=== PATIENT | male | born 1940 | race Caucasian/White ===

== ENCOUNTER 2016-08-15 09:19 | Inpatient (IN) | payer MEDICARE, OTHER ==
[~2016-08-15] VITALS: Ht 188 cm; Wt 145.8 kg
--- NOTE | ~2016-08-15 | DS ---
ADMIT: 08/15/2016 RM/LOC: 423 [facility] MR#: [id number] 26[address] [facility] [address] [place], [place] [id number] NIKOLAI MCKOY [address] [place] [address] Discharge Summary SEX: M AGE: 75 : 1940 ADMISSION DATE: 08/15/2016 DISCHARGE DATE: 08/16/2016 FINAL DIAGNOSES: 1. Chest pain. 2. Atrial fibrillation with RVR (rapid ventricular response). 3. Shortness of breath. 4. Nausea/vomiting/gastroenteritis. 5. Acute on chronic heart failure with preserved ejection fraction. 6. Coronary artery disease. 7. Mildly elevated troponin maxed at 0.48. 8. Hypokalemia. REASON FOR ADMISSION: This is a 75-year-old gentleman who presented with palpitations, shortness of breath, nausea, vomiting, and chest pain. See history and physical for further details. HOSPITAL COURSE: The patient was admitted, placed back on his regular home medicines. Initial heart rate converted from atrial fibrillation with RVR to normal sinus rhythm with IV diltiazem. After that, he felt much better. He had some residual shortness of breath initially in the evening, but this resolved by the next day. He was feeling very well by the next day, was tolerating clear liquids fine, and wished to go home and eat normal food. Therefore, he was set up to go home. We had a long discussion taking over 30 minutes to go over his discharge plan as well as follow-up plans with his heart doctor given his mildly elevated troponin. We discussed that most likely this is related to the stress of his atrial fibrillation with RVR given his rates got up into the 180s at times. We discussed this new addition of diltiazem 120 mg in the morning on top of his 240 mg at night. This will be sent to [facility]. He should be on a low-salt diet. I will hold his Lasix for a couple of days until he is eating more normally. He should have daily weights to follow this as well. He does wish to follow up with me as well as the [facility] and Dr. Nice with Cardiology, so we will make arrangements for this. Handy Adair MD/ korey JOB #: [id number] CC: Handy Adair MD, Attending Physician Mickie Ford NP, Family Physician
[~2016-08-15 09:19] MED LIST: ACCUNEB DP0.63 MG/3 IH; ASA CHILDREN'S81 MG PO; BETAPACE DPS120 MG PO; CLINDAMYCIN HC300 MG PO; DENTA 5000 PLUS51 GM TP; DILTIAZEM 24HR240 MG PO; FUROSEMIDE40 MG PO; KEPPRA250 MG PO; KLOR-CON M2020 MEQ PO; LIPITOR DPS20 MG PO; PANTOPRAZOLE SO40 MG PO; PROAIR RESPICL90 MCG IH; SPIRIVA18 MCG; SYMBICORT160 MCG/6 IH; SYNTHROID DPS0.2 MG PO; TYLENOL325 MG PO; ULTRAM DPS50 MG PO; VITAMIN D1000 UNI1 PO; XARELTO20 MG PO; ZYRTEC DPS10 MG PO
--- NOTE | 2016-08-17 13:16 | ER ---
ADMIT: 08/15/2016 RM/LOC: 423 [facility] MR#: [id number] [address] [facility] [address] [place] [id number] NIKOLAI MCKOY [address] [place] [address] Emergency Room Report SEX: M AGE: 75 : 1940 DATE: 08/15/2016 The patient is a 75-year-old male with a past medical history of COPD, atrial fibrillation, RVR, CHF, hypothyroidism who is on sotalol and is on Xarelto. The patient came to the ER with chief complaint of mid chest pain and also feeling mild shortness of breath and feeling palpitation. In the ER, the patient had heart rate of 177 to 180s and it was atrial fibrillation, 12-lead EKG was done. The patient was in prtt-lb-chcyipbp distress, blood pressure systolic was 120 to 130s. The patient already is on Xarelto and had aspirin at home. In the ER, the patient was started on IV fluids, and received 10 mg of Cardizem IV over 5 minutes which did not resolve the tachycardia. The patient received second 10 mg of Cardizem which still did not control the rate. The patient was started on Cardizem drip and the rate was converted to sinus with a rate of 84. Cardiac enzymes were negative, chest x-ray was noncontributory and the rest of the lab works were noncontributory too. The patient states the pain is substantially resolved and he does not feel the palpitation anymore. The patient was admitted to the Medicine for further followups and treatments of atrial fibrillation, RVR, chest pain. Shahab Pelayo MD/ perla JOB #: [id number] CC: Handy Adair MD, Attending Physician Mickie Ford NP, Family Physician
--- NOTE | 2016-08-17 15:08 | NUR ---
Received SAD person referral. Pt was discharged over the weekend prior to SWS seeing. Pt admits to trying to harm self. States the most recent attempt was 9 months ago. Pt states he is not on any medications. Pt states he seeks mental health treatment at the [facility]. Pt denies current thoughts of self harm. Pt states he can sense when he needs help and goes to the [facility]. Pt denies any concerns at this time.
[2016-08-17] MEDS ORDERED: LIPITOR DPS20 MG PO (16:57)
[2016-08-17] MEDS ORDERED: VITAMIN D31000 UNIT PO (16:57)
[2016-08-17] MEDS ORDERED: TYLENOL DPS325 MG PO (16:57)
[2016-08-17] MEDS ORDERED: ASPIRIN EC81 MG PO (16:57)
[2016-08-17] MEDS ORDERED: CARDIZEM CD DP120 MG PO (16:57)
[2016-08-17] MEDS ORDERED: CARDIZEM CD240 M1 PO (16:58)
[2016-08-17] MEDS ORDERED: KLOR-CON 1010 MEQ PO (16:58)
[2016-08-17] MEDS ORDERED: SYNTHROID DP0.125 MG PO (16:58)
[2016-08-17] MEDS ORDERED: SOTALOL120 MG PO (16:58)
[2016-08-17] MEDS ORDERED: VOLTAREN 1% GE100 GM TP ×2 (16:59→17:00)
[2016-08-17] MEDS ORDERED: MOI-STIR120 ML PO (16:59)
[2016-08-17] MEDS ORDERED: NEURONTIN DPS400 MG PO (17:00)
[2016-08-17] MEDS ORDERED: ROBAXIN-DPS500 MG PO (17:00)
[2016-08-17] MEDS ORDERED: NORCO 5-325 TA1 EACH PO (17:00)
[2016-08-17] MEDS ORDERED: CYMBALTA30 MG PO (17:00)
[2016-08-17] MEDS ORDERED: XARELTO20 MG PO (17:01)
[2016-08-17] MEDS ORDERED: ZANTAC DPS150 MG PO (17:01)
--- NOTE | 2016-08-19 06:54 | HP ---
ADMIT: 08/15/2016 RM/LOC: 423 [facility] MR#: [id number] 26[address] [facility] [address] [place], [place] [id number] NIKOLAI MCKOY [address] [place] [address] History and Physical SEX: M AGE: 75 : 1940 DATE OF SERVICE: CHIEF COMPLAINT: Chest pain. HISTORY OF PRESENT ILLNESS: This is a 75-year-old gentleman, [facility]. He has history of COPD and atrial fibrillation and CHF. He presented with some kind of mid-chest pain, some shortness of breath, follows some palpitations and palpitation. He had a heart rate of 170s to 180s initially, was in atrial fibrillation. He was quite short of breath and not feeling well. Blood pressure was okay. He was given some IV fluid and some Cardizem. Initially, this did work and then he received a second dose, still did not work and was started on Cardizem drip. All of a sudden, his heart rate then converted to normal sinus rhythm with rate of 84, and he felt much better. He does report, he had been sick to his stomach, the previous couple of days but has been doing a lot of vomiting and had not taken his medicines for couple days. He is on sotalol and diltiazem for this. He also takes Xarelto for anticoagulation. PAST MEDICAL HISTORY: Includes atrial fibrillation with history of RVR, history of a pacemaker. He has nonobstructive coronary artery disease, chronic diastolic congestive heart failure, hypertension, hyperlipidemia, hypothyroidism, obstructive sleep apnea, COPD, history of prostate cancer. PAST SURGICAL HISTORY: Surgeries include prostatectomy, cholecystectomy, and bilateral shoulder surgeries as well. FAMILY HISTORY: Significant for heart disease in brother and sister. He is a former smoker. He is retired from the [employer]. He is accompanied by his . Rare alcohol use. REVIEW OF SYSTEMS: Other complete review of systems obtained and negative except as above. PHYSICAL EXAMINATION: VITAL SIGNS: Temp 99.7, pulse 82, respirations 18, blood pressure 141/113, ox saturation 94% on room air. GENERAL: It is a well-appearing 75-year-old gentleman. He is in no apparent distress. He is alert. He is oriented. He is lying flat in bed. He is wearing glasses. HEENT: Pupils are equal, round, and reactive to light and accommodation. Extraocular muscles are intact. His throat is dry. NECK: Supple. Trachea midline. HEART: Regular rate and rhythm. LUNGS: Diminished but clear bilaterally. ABDOMEN: Protuberant. He has a cholecystectomy scar as well as a midline prostatectomy scar on his abdomen. EXTREMITIES: Lower extremities have 1+ lower extremity edema bilaterally. He can move all extremities equally bilaterally. He does have some generalized weakness. His cranial nerves are intact. No skin changes can be seen. ADMIT: 08/15/2016 RM/LOC: 423 [facility] MR#: [id number] [address] [place] [id number] NIKOLAI MCKOY [address] [place] [address] History and Physical SEX: M AGE: 75 : 1940 LABORATORY AND X-RAY DATA: CBC shows white count of 6, hemoglobin 17.3, platelets of 131. BMP with sodium 148, potassium 3.6, chloride 113, creatinine 1.4, BUN 25. CK-MB troponin normal. Chest x-ray with some vascular congestion bilaterally. ASSESSMENT AND PLAN: 1. Atrial fibrillation with rapid ventricular response. 2. Rkemf-hb-zvmlobb diastolic congestive heart failure secondary to his atrial fibrillation with rapid ventricular response. 3. Coronary artery disease. 4. Hypertension. 5. Hyperlipidemia. 6. Sleep apnea. 7. Chronic obstructive pulmonary disease. 8. Hypokalemia. 9. Hypernatremia. PLAN: We will try to wean his diltiazem drip to off. We will trend out his cardiac enzymes, given some extra potassium and keep him on clear liquid diet and see how he feels. I think he probably has gastroenteritis that let him does not take his medicines, which led him into atrial fibrillation with RVR. So far, he seems to be doing okay. Handy Adair MD/ perla JOB #: [id number] CC: Handy Adair MD, Attending Physician Mickie Ford NP, Family Physician
== END 2016-08-16 16:00 | disposition home or self-care (01) | DRG 308 ==
LOC: ER 09:19 → 4PCU 13:53
PROVIDERS: ADMIT Internal Medicine
DX: I48.91 Unspecified atrial fibrillation (principal); I50.33 Acute on chronic diastolic (congestive) heart failure; E87.0 Hyperosmolality and hypernatremia; J44.9 Chronic obstructive pulmonary disease, unspecified; E03.9 Hypothyroidism, unspecified; K52.9 Noninfective gastroenteritis and colitis, unspecified; R79.89 Other specified abnormal findings of blood chemistry; E87.6 Hypokalemia; I25.10 Atherosclerotic heart disease of native coronary artery without angina pectoris; I11.0 Hypertensive heart disease with heart failure; E78.5 Hyperlipidemia, unspecified; G47.33 Obstructive sleep apnea (adult) (pediatric); Z85.46 Personal history of malignant neoplasm of prostate; Z95.0 Presence of cardiac pacemaker; Z79.01 Long term (current) use of anticoagulants; Z87.891 Personal history of nicotine dependence; Z91.138 Patient's unintentional underdosing of medication regimen for other reason

== ENCOUNTER 2016-08-24 22:15 | Emergency (ER) | payer MEDICARE, OTHER ==
[~2016-08-24 22:15] MED LIST changes: +ASPIRIN EC81 MG PO; +CARDIZEM CD DP120 MG PO; +CARDIZEM CD240 M1 PO; +CYMBALTA30 MG PO; +KLOR-CON 1010 MEQ PO; +MOI-STIR120 ML PO; +NEURONTIN DPS400 MG PO; +NORCO 5-325 TA1 EACH PO; +ROBAXIN-DPS500 MG PO; +SOTALOL120 MG PO; +SYNTHROID DP0.125 MG PO; +TYLENOL DPS325 MG PO; +VITAMIN D31000 UNIT PO; +VOLTAREN 1% GE100 GM TP; +ZANTAC DPS150 MG PO
--- NOTE | 2016-08-29 08:22 | ER ---
ADMIT: 08/24/2016 RM/LOC: ER [facility] MR#: [id number] [address] [place], [place] [phone] NIKOLAI MCKOY [address] [place] [address] Emergency Room Report SEX: M AGE: 76 : 1940 DATE: 08/24/2016 HISTORY OF PRESENT ILLNESS: A 76-year-old gentleman comes to the emergency department with heart burden, chest discomfort, though he says it is in his upper abdomen, radiates across to the right side of his chest. Describes it as a burning sensation. He states he has had similar symptoms in the past. He usually takes a GI cocktail, but apparently the [facility]. He also complains of a severe headache. Both of these came on gradually over the last 1 hour. See T-sheet for remainder of history and physical. Cardiac workup was done in the Emergency Department. EKG was unremarkable. CBC and CMP and cardiac markers resulted back with normal values. His chest x- ray was unremarkable. Head CT scan was done also, which was normal. The patient stated that the GI cocktail relieved his heartburn symptoms completely and his headache had dropped from 9 down to 4. He was given Ultram with resolution of the headache. DIAGNOSES: 1. Gastroesophageal reflux disease. 2. Headache. PLAN: He is encouraged to follow up with his doctor this week. Ricky Sebastian MD/ perla JOB #: [id number] CC: Shahab Pelayo MD, Attending Physician [facility] Physician, Family Physician
== END 2016-08-25 00:30 | disposition home or self-care (01) ==
LOC: ER 22:15
DX: K21.9 Gastro-esophageal reflux disease without esophagitis (principal); R51 Headache; I10 Essential (primary) hypertension; Z95.0 Presence of cardiac pacemaker; Z79.82 Long term (current) use of aspirin; Z79.899 Other long term (current) drug therapy; Z88.0 Allergy status to penicillin; Z88.1 Allergy status to other antibiotic agents; Z88.8 Allergy status to other drugs, medicaments and biological substances